=== PATIENT | female | born 1965 | race Caucasian/White ===

== ENCOUNTER 2021-07-06 02:23 | Inpatient (IN) | payer OTHER ==
[~2021-07-06] VITALS: Ht 160 cm; Wt 99.3 kg
[2021-07-06] VITALS (7 sets, daily range): BP systolic 130–154; BP diastolic 64–94
[2021-07-06] MEDS ORDERED: COZAAR 25 MG TA25 M1 PO (02:31)
[2021-07-06] MEDS ORDERED: FLONASE 0.05%50 MCG NASAL (02:32)
--- NOTE | 2021-07-06 05:50 | NUR ---
ATTEMPTED TO CALL REPORT WITH NO ANSWER.
--- NOTE | 2021-07-06 07:26 | NUR ---
PT WAS TRANSFERRED TO THIS UNIT FROM THE ED AT APPROX 0620 ACCOMPANIED BY DAUGHTER WHO WORKS ED NURSE AT THIS HOSPITAL. PT IS A&OX4. IS ON ROOM AIR. IS STABLE. REPORTED PAIN 6/10 IN THE ABD. PAIN MEDS ADMINISTERED. FLUIDS INFUSING. WAS ORIENTED TO ROOM & UNITED. ADMISSION PACKET GIVEN & EDUCATION PROVIDED. VITALS & WT TAKEN. PT WAS SETTLED IN ROOM. REPORT GIVEN TO DAY NURSE. CHART PUT TOGETHER. NEW ARM BAND APPLIED. ALLERGIES ARE IN CHART. ARM BAND ON WRIST. CALL LIGHT WITHIN REACH.
[2021-07-06 07:49] LABS: HEMATOCRIT 37.7 % (37.0-47.0); HEMOGLOBIN 12.4 gm/dL (12.0-15.0); MCH 30.6 pg (26.0-34.0); MCHC 32.7 g/dL (28.0-37.0); MCV 93.5 fL (80.0-100.0); RBC 4.03 mil/uL (4.20-5.00); RDW 13.6 % (10.5-14.5); WBC 8.9 thou/uL (4.0-11.0)
[2021-07-06 07:59] LABS: ALBUMIN 3.6 g/dL (3.4-5.0); CALCIUM 8.9 mg/dL (8.5-10.1); CREATININE 0.6 mg/dL (0.6-1.0); PHOSPHORUS 4.3 mg/dL (2.5-4.9); POTASSIUM 3.7 mmol/L (3.5-5.1)
--- NOTE | 2021-07-06 09:37 | NUR ---
55-year-old female. Patient was a transfer to our hospital from [facility] in [place], for further evaluation recommendation diverticulitis with two abscesses. Patient reports abdominal pain over the last few days progressively gotten worse. CT scan abdomen revealed diverticulitis with two abscess, suspicious perforated diverticula. Patient was transferred to our facility for general surgery consultation recommendation. Patient does report nausea with pain medication. Chart review. Cm visited with patient and her daughter who work here in the ED. 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 Patient son lives at home as well. Antonina stays in basement part of home, able to do stair. Manage own medication. Drives. No hh or rehab in the past. No anticipated needs. Is currently on IV medication. Will cont. following as needed for dc needs. She requested to have sanaary to complete her DPOA paperwork she filled out here. Spiritual care notified by bedside staff.
--- NOTE | 2021-07-06 18:30 | NUR ---
PT ASSESSED AT START OF SHIFT AFTER COMING IN FROM THE ER. DAUGHTER AT BEDSIDE IS RN IN THE ER. PT HAVING SOME ABD PAIN AND NAUSEA FROM ABSCESSED DIVERTICULUM. IR CONSULTED TO PLACE DRAIN PER DR. COTA. DRAIN IN W/ NO DRAINAGE IN BAG AT THIS TIME. IV DILAUDID GIVEN W/ GOOD PAIN RELIEF. AMBULATING TO THE BATHROOM TO VOID. NO BM BUT PASSING FLATUS.
[2021-07-07 05:29] LABS: ABSOLUTE NEUTROPHILS 4.9 thou/uL (1.4-8.2); BASOPHILS 0.3 % (0.0-2.0); EOSINOPHILS 0.7 % (0.0-3.0); HEMATOCRIT 36.7 % (37.0-47.0); HEMOGLOBIN 12.2 gm/dL (12.0-15.0); LYMPHOCYTES 26.5 % (24.0-44.0); MCH 30.8 pg (26.0-34.0); MCHC 33.2 g/dL (28.0-37.0); MCV 92.7 fL (80.0-100.0); MONOCYTES 7.3 % (1.0-8.0); PLATELET COUNT 268 thou/uL (150-400); POLYS 65.2 % (36.0-66.0); RBC 3.96 mil/uL (4.20-5.00); RDW 13.6 % (10.5-14.5); WBC 7.6 thou/uL (4.0-11.0)
[2021-07-07 06:00] LABS: ALBUMIN 3.4 g/dL (3.4-5.0); CALCIUM 8.6 mg/dL (8.5-10.1); CREATININE 0.7 mg/dL (0.6-1.0); MAGNESIUM 2.1 mg/dL (1.8-2.4); POTASSIUM 3.6 mmol/L (3.5-5.1); TOTAL BILIRUBIN 0.6 mg/dL (0.2-1.0); TOTAL PROTEIN 7.4 g/dL (6.4-8.2)
--- NOTE | 2021-07-07 07:25 | NUR ---
ASSUMED CARE AT 1930 OF 07/06. PATIENT IS A&OX4, REPORTED PAIN IN LOWER ABDOMEN AND PELVIC AREA. DRESSING TO DRAIN IS INTACT AND IN PLACE. SEROUSANGOUNOUS DRAINAGE NOTED. PATIETN HAS BEEN UP AD LYNDSAY, AND REPORTS PAIN IS ALLEVIATED WHEN STANDING UP. IV IN LEFT AC IS INTACT AND PATENT, NS RUNNING AT 126CC/HR. RECEVING IV ABX, NO S/S OF ADVERSE EFFECTS REPORTED. SCHEDULED REGLAN WAS EFFECTIVE AT MANAGING NAUSEA. PATIENT IS NPO, BUT IS OKAY TO HAVE ICE CHIPS, WHICH HAS HELPED WITH NAUSEA PER PATIENT REPORT. FALL PRECAUTIONS IN PLACE, CALL LIGHT WITHIN REACH. WILL CONTINUE TO MONITOR.
[2021-07-07 07:30] VITALS: BP 145/87
[2021-07-07 08:02] LABS: URINE BILIRUBIN NEGATIVE (Negative); URINE BLOOD NEGATIVE (Negative); URINE CLARITY CLEAR; URINE COLOR YELLOW; URINE GLUCOSE-RANDOM* NEGATIVE (Negative); URINE KETONES 3+ (Negative); URINE LEUKOCYTES-REFLEX NEGATIVE (Negative); URINE NITRITE-REFLEX NEGATIVE (Negative); URINE PROTEIN (DIPSTICK) 1+ (Negative); URINE SPECIFIC GRAVITY >= 1.030 (1.005-1.035); URINE UROBILINOGEN 0.2 E.U./dl (0.2-1.0)
[2021-07-07 08:14] LABS: URINE REDUCING SUBSTANCE NEGATIVE
[2021-07-07 09:19] LABS: HYALINE CASTS 0-3 Few /LPF (None Seen); SQUAMOUS 4-10 Moderate /LPF (0-3)
[2021-07-07 09:20] LABS: BACTERIA-REFLEX 1-9 Few /HPF (None Seen); CRYSTALS None Seen /LPF (None Seen); URINE RBC 1-2 Rare /HPF (NONE SEEN); URINE WBC-REFLEX 0-5 Rare /HPF (0-5)
--- NOTE | 2021-07-07 14:12 | NUR ---
Discussed during los with the attending physician. Possible will be ready for dc over the weekend. Will cont following if needs arise.
[2021-07-07 15:53] VITALS: BP 152/95
--- NOTE | 2021-07-07 17:14 | NUR ---
assumed care of pt at 0700. pt aox4 up ad no arsalan. no complaints. changed depedent drainage back to mary drain per surg rec. ivf infusing per order. christiano diet. tolerating clear liquids. pain well controlled with current med regimen. vitals stable.
[2021-07-07 19:57] VITALS: BP 154/87
--- NOTE | 2021-07-07 23:17 | HC ---
[facility] [address] [address] CONSULTATION Name: RUBY DELCID Room #: 439-P ADM IN M.R.#: [id number] Admission: 07/06/21 Attend Phys: Luis F Smith Discharge: Date of : 63 Report #: [id number] THIS REPORT FOR: cc: LOUANN MCELROY MD Physician not on staff Nawaf Laws MD ~ DATE OF SERVICE: 07/06/2021 INFECTIOUS DISEASES CONSULTATION REASON FOR CONSULTATION: I was asked to evaluate concerning diverticular abscess. HISTORY OF PRESENT ILLNESS: The patient is a 55-year-old with longstanding history of irritable bowel syndrome, who presents in transfer from outside hospital in [place], outside of [place] where she was diagnosed with diverticulitis with associated abscess. Her abdominal pain has progressed over the last 48 hours. She has had intermittent nausea. Stools have been soft and formed. No blood. She has constipation, predominant irritable bowel syndrome. She had mild dysuria. She has had no blood in her urine. Denies any fever, chills or sweats. Pain has been her main symptom. CT scan imaging showed evidence of pelvic abscess. Following transfer to [facility], she has been seen by General Surgery, GI service and Interventional Radiology. Drain has been placed. Continues with nausea. REVIEW OF SYSTEMS: A 14-point review of system was negative other than what has been described above. ALLERGIES: LATEX, SULFA, TETRACYCLINE, CODEINE. MEDICATIONS: As noted on her MAR, now on Zosyn. PAST MEDICAL HISTORY: Hypertension, irritable bowel syndrome, anxiety, depression, PVCs. FAMILY HISTORY: Negative for tuberculosis. SOCIAL HISTORY: Nonsmoker, minimal alcohol intake. No HIV risk factors. PHYSICAL EXAMINATION: GENERAL: Afebrile and hemodynamically stable. She was alert and cooperative. Obese. SKIN: Without rash. No adenopathy. HEENT: Eyes without scleral icterus. Mouth without mucositis. NECK: Supple. LUNGS: Clear. [facility] [address] [place] [address] CONSULTATION Name: RUBY DELCID Nory Room #: 439-P [facility] IN ..#: [id number] Admission: 07/06/21 Attend Phys: Luis F Smith Discharge: Date of : 63 Report #: [id number] HEART: Regular, without murmur. ABDOMEN: Obese, soft, mild tenderness in the lower quadrants bilaterally without appreciable mass. In the suprapubic region, she has a drain in place with serosanguineous output GENITORECTAL: Not performed. EXTREMITIES: Without clubbing, cyanosis or edema. BACK: Spine was nontender. NEUROLOGIC: Cranial nerves intact and strength in the upper and lower extremities was symmetric and within normal limits. Mood without anxiety. LABORATORY DATA: Reviewed. IMPRESSION: 1. Diverticulitis with intraabdominal abscess, status post drain placement. 2. Hypertension. 3. Obesity. 4. Anxiety and depression. 5. Irritable bowel syndrome. RECOMMENDATION: We will continue with Zosyn, pending culture results. Await serial imaging studies. Monitor laboratory studies. Control pain and anxiety. Likely the patient will undergo surgical intervention once stabilized. <ELECTRONICALLY SIGNED> By: Nawaf Laws MD 07/07/21 [id number] Nawaf Laws MD /nt
--- NOTE | 2021-07-08 04:10 | NUR ---
RECEIVED CARE OF THIS PATIENT AT 1900. PATIENT ALERT AND ORIENTED X4. UP AD LYNDSAY. IV PATENT IN LAC WITH FLUIDS INFUSING. EDUARDO DRAIN PRESENT. C/O ONLY VERY MILD PAIN. MED GIVEN. SLEPT LITTLE THIS SHIFT.
--- NOTE | 2021-07-08 10:10 | NUR ---
A/O X 4. LENNY, AIR. AD LID-STEADY GAIT. LEFT AC PIV-REDRESSED AT START OF SHIFT DUE TO LOOSE DRESSING, NOT LEAKING NOW, PATENT. NS INFUSING @ 126 MLS/HR. CONT B/B. RIGHT LOWER ABD EDUARDO DRAIN. LOWER ABD SURGICAL SITE, DRESSING DRY, CLEAN, INTACT, ZOSYN ABT TOLERATING WELL. SHOWER TODAY. LIENS CHANGED. NO PAIN NOTED, REFUSED TORADAL AND TYLENOL. FULL LIQUID DIET.
[2021-07-08 10:40] VITALS: BP 195/108
--- NOTE | 2021-07-08 15:16 | NUR ---
Discussed during los with the attending physician. Will be there through the weekend. Still requiring mary drain and IV ABX. Will cont following as needed for dc needs.
[2021-07-08 17:37] VITALS: BP 186/104
[2021-07-08 21:11] VITALS: BP 168/99
--- NOTE | 2021-07-09 03:57 | NUR ---
UPON SHIFT REPORT, PT REPORTING 1-2/10 PAIN IN LOWER ABDOMEN. UPON SHIFT ASSESSMENT, PT AOX4. PT CONTINUES TO REPORT 1-2/10 PAIN IN LOWER ABDOMEN. PT HAS PRN IV DILAUDID Q4HR AVAILABLE. PT DENIES SOB WHILE ON ROOM AIR. PT WITH INTERMITTENT ANXIETY. PT RECEIVING PRN IV ATIVAN Q8HR. PT TOLERATING PO INTAKE OF FLUIDS AND FULL LIQUID DIET WITHOUT ISSUE. PT WITH INTERMITTENT NAUSEA WITHOUT EMESIS. PT RECEIVING PRN IV REGLAN BID. PT AMBULATING INDEPENDENTLY IN ROOM AND TO BATHROOM, RESTING IN BED OTHERWISE. SENSATION INTACT, CAPILLARY REFILL LESS THAN 3SEC, PERIPHERAL PULSES PALPABLE IN ALL EXTREMITIES. DRAIN TO RLQ IN PLACE WITH SCANT AMOUNT OF BLOODY, SEROUS DRAINAGE, DRESSING CLEAN, DRY, AND INTACT. PT ENCOURAGED TO NOTIFY STAFF FOR ALL NEEDS, CALL LIGHT WITHIN REACH, BED LOCKED IN LOWEST POSITION, FREQUENT MONITORING WILL CONTINUE.
[2021-07-09 06:05] LABS: HEMATOCRIT 34.6 % (37.0-47.0); HEMOGLOBIN 11.6 gm/dL (12.0-15.0); MCH 30.8 pg (26.0-34.0); MCHC 33.6 g/dL (28.0-37.0); MCV 91.8 fL (80.0-100.0); RBC 3.77 mil/uL (4.20-5.00); RDW 13.4 % (10.5-14.5); WBC 5.6 thou/uL (4.0-11.0)
[2021-07-09 08:21] VITALS: BP 168/86
--- NOTE | 2021-07-09 15:04 | NUR ---
PT ALERT AND ORIENTED TIMES FOUR. VSS, RIGHT LOWER ABD EDUARDO DRAIN TO BULB SUCTION. IVF INFUSING PER ORDER. SCHEDULED PAIN MEDICATIONS CONTROLLING PAIN WELL. PRN MEDICATIONS FOR ANXIETY GIVEN. PT UP AB LYNDSAY WITH STEADY GAIT. PT DAUGHTER AT BEDSIDE THIS MORNING. WILL CONTINUE TO MONITOR.
[2021-07-09 16:11] VITALS: BP 174/87
[2021-07-09 20:00] VITALS: BP 172/107
--- NOTE | 2021-07-10 03:35 | NUR ---
PT IS A/O X4 AND IS UP AD LYNDSAY. VSS. AFEBRILE. PLEASANT AND COOPERATIVE WITH CARE. C/O NAUSEA. PRN ZOFRAN GIVEN DIRECTED. EDUARDO DRAIN REMAINS IN PLACE DRAINING A DARK NEWBY WATERY LIQUID. SCHEDULED TYLENOL GIVEN FOR PAIN DIRECTED. FALL PRECAUTIONS IN PLACE, CALL LIGHT IS WITHIN REACH.
[2021-07-10 08:29] VITALS: BP 168/102
--- NOTE | 2021-07-10 14:05 | NUR ---
A/O X 4. ROOM AIR, AD LID, FLUIDS D/C'D. RIGHT EDUARDO DRAIN ABOVE PUBIS AREA-10 CC DARK RED DRAINAGE, SURGICAL SITE ABOVE PUBIS AREA-DRESSING,DRY, CLEAN, AND INTACT. RIGHT UPPER PICC LINE PLACED. LEFT FOREARM IV D/C'D. NO PAIN NOTED.
[2021-07-10 15:35] VITALS: BP 184/97
--- NOTE | 2021-07-10 16:52 | NUR ---
PICC PLACED FOR LT ABX
[2021-07-10 19:37] VITALS: BP 162/93
[2021-07-11 00:02] VITALS: BP 141/82
[2021-07-11 04:28] VITALS: BP 146/90
--- NOTE | 2021-07-11 04:49 | NUR ---
PT AMBULATING TO BATHROOM INDEPENDENTLY AND IS TOLERATING WELL. DENIES PAIN. RESTING COMFORTABLY. NO NEEDS VOICED. CALL LIGHT WITHIN REACH. FREQUENT OBSERVATION.
[2021-07-11 07:30] VITALS: BP 156/95
--- NOTE | 2021-07-11 09:23 | NUR ---
0705 THIS NURSE ASSUMED CARE OF THIS PATIENT. PT SLEEPING, NORMAL RISE AND FALL OF CHEST SEEN, NO RESPIRATORY DISTRESS NOTED AT THIS TIME. IV IN PLACE AND INFUSING. PT IS CURRENTLY NPO FOR PROCEDURE. ALL DRINKS AND FOOD ARE NOT AVAILABLE AND OUT OF PATIENT'S REACH. 0825 CHUY ESPITIA FROM IR CALLED REGARDING PATIENT PROCEDURE. SHE INFORMED NURSE THAT SHE MAY GET BUMPED TO TOMORROW AND WANTED US TO KNOW. SHE STATED SHE WILL CALL US BACK. 0850 CHUY ESPITIA FROM IR CALLED TO INFORM US THAT THE PATIENT DID GET BUMPED TO TOMORROW. MAY RESUME MEAL, HOLD LOVENOX AND NPO TONIGHT AT MIDNIGHT. DR. PATTERSON AWARE. 0900 PT INFORMED OF CHANGE IN PROCEDURE. PT IS DISAPPOINTED AND DIDN'T WANT TO STAY HERE ANY LONGER, BUT UNDERSTANDS SITUATION. PT GIVEN FULL LIQUID DIET FOR BREAKFAST.
[2021-07-11 09:26] LABS: APTT 27.5 Seconds (24.5-32.8); INR 1.01
--- NOTE | 2021-07-11 14:27 | NUR ---
Consult for hh, IV abx. Flores had picc line placed yesterday. Eliecer visited with her about infusion company and hh. anyone that takes my insurance will be fine. Not every had any hh in the past per flores. Noted possible going for IR procedure tomorrow. Really want to be home before harvinder per flores. Will cont following as needed.
[2021-07-11 17:10] VITALS: BP 150/90
[2021-07-11 19:31] VITALS: BP 154/101
--- NOTE | 2021-07-12 02:15 | NUR ---
PT IS A/OX4 AND IS UP AD LYNDSAY. C/O ANXIETY AND NERVOUSNESS ABOUT UPCOMING PROCEDURE. ROOM AIR. BP ELEVATED. DRAIN SITE C/D/I AND IS DRAINING RED/NEWBY LIQUID. PT VOIDS PER TOILET INDEPENDENTLY. NO BM THIS SHIFT. C/O INSOMNIA. PRN MELATONIN GIVEN AT PT REQUEST. MEDICATIONS GIVEN PER SEP WHOLE WITH WATER. ABX GIVEN DIRECTED. PT HAS BEEN NPO SINCE MIDNIGHT AWAITING PROCEDURE TOMORROW. CALLS OUT APPROPRIATELY FOR ASSISTANCE. CALL LIGHT IS WITHIN REACH
[2021-07-12 04:49] VITALS: BP 126/84
[2021-07-12 08:00] VITALS: BP 141/88
--- NOTE | 2021-07-12 09:07 | NUR ---
Assess due to length of stay. Admit with diverticulitis/abscess. Pt has been npo/CL/FL past 6 days and was tolerating. No significant wt changes. Plan is for another drain placement in IR. Presents low nutrition risk but will follow for timely diet advance.
--- NOTE | 2021-07-12 10:34 | NUR ---
Assumed care of pt at 0700. pt a&ox4. Pain controlled. RA. Per provider, drainage procedure cancelled today. J.P. drain in place. IV antibiotics infusing. Call light within reach. Will continue to monitor.
--- NOTE | 2021-07-12 11:16 | NUR ---
Cm notified by [facility] [place] home [place] that they do not take her insurance. Cm sent referral to [facility] to see if they are in net work with her insurance. Discussed during los, anticipated dc when IV abx and hh is arranged.
[2021-07-12] MEDS ORDERED: COZAAR 25 MG TA25 M1 PO (12:18)
--- NOTE | 2021-07-12 12:50 | NUR ---
referral sent to [facility], they can accept and will be out around 3pm today for iv abx education. 100% covered till, july 2021 then 50/50 till her dep is met. Antonina agrees and ok with using [facility]. CM [facility] [place] # [phone], fax # [phone], [facility] out of [place] # [phone], fax # [phone].
[2021-07-12 14:10] VITALS: BP 141/88
[2021-07-12] MEDS ORDERED: DIFLUCAN100 MG PO (15:28)
--- NOTE | 2021-07-12 16:55 | NUR ---
DC orders faxed and confirmed with both [facility]. [facility] will have their RN out to the home tomorrow and [facility]'s IV nurse was here today to do a bedside teach.
== END 2021-07-12 18:13 | disposition home health service (06) | DRG 872 ==
LOC: ER 02:23 → 4S 02:37 → EROBS 02:37 → 4S 06:11
PROVIDERS: Nurse Practitioner; Radiology Diagnostic Radiology; Surgery; ADMIT Hospitalist; ATTEND Hospitalist
PROC: 02HV33Z Insertion of Infusion Device into Superior Vena Cava, Percutaneous Approach (ICD-10-PCS; principal; 2021-07-06)
PROC: 0W9F30Z Drainage of Abdominal Wall with Drainage Device, Percutaneous Approach (ICD-10-PCS; 2021-07-06)
DX: A41.9 Sepsis, unspecified organism (principal); K57.20 Diverticulitis of large intestine with perforation and abscess without bleeding; F41.9 Anxiety disorder, unspecified; F32.A Depression, unspecified; I10 Essential (primary) hypertension; Z88.2 Allergy status to sulfonamides; Z88.8 Allergy status to other drugs, medicaments and biological substances; Z91.040 Latex allergy status; Z20.822 Contact with and (suspected) exposure to COVID-19
CPT/HCPCS: 10195; 27000